=== PATIENT | male | born 1945 | race Caucasian/White ===

== ENCOUNTER → 2017-02-08 | Outpatient (REF) | payer MEDICARE, OTHER ==
[2017-02-08 13:38] LABS: IMMUNOGLOBULIN G 1040 MG/DL (681-1648); IMMUNOGLOBULIN M 188 MG/DL (40-230); TOTAL PROTEIN 6.7 GM/DL (6.4-8.2); URIC ACID 7.8 MG/DL (3.5-7.2)
[2017-02-09 12:09] LABS: ALBUMIN 3.77 GM/DL (3.29-5.55); ALBUMIN % 56.2 % (55.8-66.1); GAMMA GLOBULIN % 15.1 % (11.1-18.8)
== END ==
LOC: M LAB REF 12:22
PROVIDERS: ATTEND Internal Medicine
DX: M10.072 Idiopathic gout, left ankle and foot (principal); D47.2 Monoclonal gammopathy

== ENCOUNTER → 2017-08-15 | Outpatient (REF) | payer MEDICARE, OTHER ==
[2017-08-15 14:27] LABS: IMMUNOGLOBULIN G 1070 MG/DL (681-1648); IMMUNOGLOBULIN M 186 MG/DL (40-230); TOTAL PROTEIN 6.7 GM/DL (6.4-8.2)
[2017-08-17 11:14] LABS: ALBUMIN 3.69 GM/DL (3.29-5.55); GAMMA GLOBULIN % 15.4 % (11.1-18.8)
== END ==
LOC: M LAB REF 13:18
PROVIDERS: ATTEND Internal Medicine
DX: D47.2 Monoclonal gammopathy (principal)

== ENCOUNTER 2017-09-29 09:57 | Day surgery (SDC) | payer MEDICARE, OTHER ==
[2017-09-29] MEDS ORDERED: NEOSTIGMINE 10 MG/10 ML VIAL (J2710) ×2 (09:58)
[2017-09-29 10:39] LABS: INR 0.97
[2017-09-29] MEDS: LR 1,000 ML IV ×4 (10:48)
[2017-09-29] MEDS: METOPROLOL SUCC (TopROL XL) 100MG *XL* TAB PO ×4 (11:01)
[2017-09-29] MEDS ORDERED: PHENYLephrine HCL 500 MCG/5 ML (100MCG/ML) SYRINGE (J2370) As Ordered ×4 (13:24)
[2017-09-29] MEDS ORDERED: PROPOFOL 200 MG/20 ML VIAL As Ordered ×4 (13:24)
[2017-09-29] MEDS ORDERED: DESFLURANE 240 ML INHALANT As Ordered ×4 (13:24)
[2017-09-29] MEDS ORDERED: MIDAZOLAM INJ 2 MG/2 ML VIAL (J2250) As Ordered ×4 (13:24)
[2017-09-29] MEDS ORDERED: fentaNYL 100 MCG/2 ML INJECTION (J3010) As Ordered ×8 (13:24→14:03)
[2017-09-29] MEDS ORDERED: ROCURONIUM BROMIDE 50 MG/5 ML VIAL As Ordered ×4 (13:24)
[2017-09-29] MEDS ORDERED: LIDOCAINE 2% INJ 100 MG/5 ML SDV (FOR ANES.) As Ordered ×4 (13:24)
[2017-09-29] MEDS ORDERED: NEOSTIGMINE 10 MG/10 ML VIAL (J2710) As Ordered ×4 (13:34)
[2017-09-29] MEDS ORDERED: ONDANSETRON 4MG/2ML VIAL (J2405) As Ordered ×4 (13:34)
[2017-09-29] MEDS ORDERED: GLYCOPYRROLATE INJ 0.2 MG/ML 2 ML VIAL As Ordered ×4 (13:34)
[2017-09-29] MEDS ORDERED: KETOROLAC 60 MG/2 ML VIAL (J1885) As Ordered ×4 (13:34)
[2017-09-29] MEDS: LIDOCAINE W/EPINEPHRINE 1% 20ML VIAL As Ordered ×4 (14:15)
[2017-09-29] MEDS ORDERED: NORCO, ANEXSIA 5/325MG TABLET (HYDROcodone/ACETAMINOPHEN) PO ×4 (15:30)
[2017-09-29] MEDS ORDERED: ONDANSETRON 4MG/2ML VIAL (J2405) IV ×4 (15:30)
[2017-09-29] MEDS ORDERED: MORPHINE 10 MG/ML 1ML VIAL IV ×3 (15:30)
[2017-09-29] MEDS ORDERED: fentaNYL 100 MCG/2 ML INJECTION (J3010) IV ×4 (15:30)
[2017-09-29] MEDS ORDERED: LR 1,000 ML IV ×4 (15:30)
[2017-09-29] MEDS ORDERED: MORPHINE 10 MG/ML 1ML VIAL (J2270) IV (15:30)
[2017-09-29] MEDS ORDERED: PERCOCET 5MG/325MG TAB PO ×4 (15:30)
== END 2017-09-29 17:12 | disposition home or self-care (01) ==
LOC: M SDC 09:57
DX: K40.90 Unilateral inguinal hernia, without obstruction or gangrene, not specified as recurrent (principal); I11.9 Hypertensive heart disease without heart failure; I48.2 Chronic atrial fibrillation; I42.0 Dilated cardiomyopathy; M10.9 Gout, unspecified; K21.9 Gastro-esophageal reflux disease without esophagitis; E66.09 Other obesity due to excess calories; Z85.46 Personal history of malignant neoplasm of prostate; Z79.899 Other long term (current) drug therapy; Z79.01 Long term (current) use of anticoagulants
CPT/HCPCS: 49650; J0690

== ENCOUNTER 2018-01-13 18:34 | Inpatient (IN) | payer MEDICARE, OTHER ==
[2018-01-13 19:48] LABS: BASO # 0.1 10^3/uL (0.0-0.2); BASO % 0.2 % (0.0-1.0); HEMOGLOBIN 12.2 g/dl (13.5-17.5); IMMATURE GRANULOCYTE % 0.9 % (0-3.0); LYMPH # 1.2 10^3/uL (1.5-4.5); LYMPH % 4.8 % (24.0-44.0); MEAN CORPUSCULAR HEMOGLOBIN 32.4 pg (27.0-33.0); MEAN CORPUSCULAR HGB CONC 33.9 g/dl (32.0-36.5); MEAN CORPUSCULAR VOLUME 95.5 fl (80.0-96.0); MONO # 1.1 10^3/uL (0.0-0.8); MONO % 4.4 % (0.0-5.0); NEUTROPHILS % 89.7 % (36.0-66.0); PLATELET COUNT, AUTOMATED 243 10^3/uL (150-450); RED BLOOD COUNT 3.77 10^6/uL (4.30-6.10); RED CELL DISTRIBUTION WIDTH 13.7 % (11.5-14.5); WHITE BLOOD COUNT 25.6 10^3/uL (4.0-10.0)
[2018-01-13] MEDS: NS 1,000 ML IV ×2 (19:49→21:38)
[2018-01-13 19:59] LABS: INR 2.71; PROTHROMBIN TIME 29.9 SECONDS (12.4-14.5)
[2018-01-13 20:00] LABS: PARTIAL THROMBOPLASTIN TIME 41.3 SECONDS (26.8-37.9)
[2018-01-13 20:23] LABS: ANION GAP 6 MEQ/L (8-16); BLOOD UREA NITROGEN 27 MG/DL (7-18); CALCIUM LEVEL 8.2 MG/DL (8.8-10.2); CARBON DIOXIDE LEVEL 28 MEQ/L (21-32); CHLORIDE LEVEL 109 MEQ/L (98-107); CK-MB VALUE MASS 1.9 NG/ML (<3.6); CPK CREATINE PHOSPHOKINASE 147 U/L (39-308); GLOMERULAR FILTRATION RATE 48.7 (>42); GLUCOSE, FASTING 111 MG/DL (70-100); MB/CK RELATIVE INDEX 1.29 (< OR =4); POTASSIUM SERUM 4.1 MEQ/L (3.5-5.1); SODIUM LEVEL 143 MEQ/L (136-145); TROPONIN I < 0.02 NG/ML (< 0.10)
[2018-01-13 21:43] LABS: KETONE, URINE AUTO RFX NEGATIVE (NEGATIVE); LEUKOCYTE ESTERASE UR AUTO RFX NEGATIVE (NEGATIVE); MUCUS, URINE RFX SMALL (NEGATIVE); NITRITE, URINE AUTO RFX NEGATIVE (NEGATIVE); RBC, URINE AUTO RFX 76 /HPF (0-3); SQUAM EPITHELIAL CELL UR AURFX 0 /HPF (0-6); WBC, URINE AUTO RFX 2 /HPF (0-3)
[2018-01-13 21:56] LABS: LACTIC ACID SEPSIS PROTOCOL 0.9 MMOL/L (0.4-2.0)
[2018-01-13] MEDS: PIPERACILLIN/TAZOBACTAM SOD 3.375 GM in D5W MINI-BAG PLUS 50 ML IV (22:59)
[2018-01-14] MEDS ORDERED: NS 1,000 ML IV (03:00)
[2018-01-14] MEDS: NS 1,000 ML IV ×2 (04:05→17:18)
[2018-01-14] MEDS: AZITHROMYCIN INJ 500 MG, VIAL MATE ADAPTER 1 EACH in D5W 250 ML IV (04:06)
[2018-01-14] MEDS: cefTRIAXone SOD 1 GM in D5W MINI-BAG PLUS 50 ML IV (05:31)
[2018-01-14] MEDS ORDERED: SPIRONOLACTONE 12.5MG PER 1/2 TABLET PO (09:00)
[2018-01-14] MEDS ORDERED: hydroCHLOROthiazide 12.5 MG CAPSULE PO (09:00)
[2018-01-14] MEDS: OCUVITE 1 TAB PO (10:02)
[2018-01-14] MEDS: BISACODYL 5 MG TAB PO (10:02)
[2018-01-14] MEDS: VALSARTAN 80 MG TAB (DIOVAN) PO (10:38)
[2018-01-14] MEDS: METOPROLOL SUCC (TopROL XL) 100MG *XL* TAB PO (10:42)
[2018-01-14 11:21] LABS: INR 2.93; PROTHROMBIN TIME 31.9 SECONDS (12.4-14.5)
[2018-01-14 11:28] LABS: C REACTIVE PROTEIN QUANTITATIV 7.36 MG/DL (0.00-0.30)
[2018-01-14] MEDS: WARFARIN SOD 3 MG TAB PO (17:18)
[2018-01-15] MEDS: NS 1,000 ML IV (00:28)
[2018-01-15] MEDS: AZITHROMYCIN INJ 500 MG, VIAL MATE ADAPTER 1 EACH in D5W 250 ML IV (04:10)
[2018-01-15] MEDS: cefTRIAXone SOD 1 GM in D5W MINI-BAG PLUS 50 ML IV (06:16)
[2018-01-15 06:22] LABS: HEMATOCRIT 32.5 % (42.0-52.0); HEMOGLOBIN 10.6 g/dl (13.5-17.5); MEAN CORPUSCULAR HEMOGLOBIN 31.7 pg (27.0-33.0); MEAN CORPUSCULAR HGB CONC 32.6 g/dl (32.0-36.5); MEAN CORPUSCULAR VOLUME 97.3 fl (80.0-96.0); PLATELET COUNT, AUTOMATED 191 10^3/uL (150-450); RED BLOOD COUNT 3.34 10^6/uL (4.30-6.10); RED CELL DISTRIBUTION WIDTH 14.1 % (11.5-14.5); WHITE BLOOD COUNT 11.1 10^3/uL (4.0-10.0)
[2018-01-15 06:48] LABS: C REACTIVE PROTEIN QUANTITATIV 4.26 MG/DL (0.00-0.30)
[2018-01-15 06:49] LABS: INR 2.42; PROTHROMBIN TIME 27.3 SECONDS (12.4-14.5)
[2018-01-15 08:58] LABS: ANION GAP 6 MEQ/L (8-16); BLOOD UREA NITROGEN 20 MG/DL (7-18); CALCIUM LEVEL 7.9 MG/DL (8.8-10.2); CARBON DIOXIDE LEVEL 26 MEQ/L (21-32); CHLORIDE LEVEL 112 MEQ/L (98-107); CREATININE FOR GFR 1.05 MG/DL (0.70-1.30); GLOMERULAR FILTRATION RATE > 60.0 (>42); GLUCOSE, FASTING 99 MG/DL (70-100); POTASSIUM SERUM 4.1 MEQ/L (3.5-5.1); SODIUM LEVEL 144 MEQ/L (136-145)
[2018-01-15] MEDS: PREVNAR 13 VACCINE SYRINGE (CPT CODE:90670) IM (09:12)
[2018-01-15] MEDS: BISACODYL 5 MG TAB PO (09:13)
[2018-01-15] MEDS: VALSARTAN 80 MG TAB (DIOVAN) PO (09:13)
[2018-01-15] MEDS: OCUVITE 1 TAB PO (09:13)
[2018-01-15] MEDS: METOPROLOL SUCC (TopROL XL) 100MG *XL* TAB PO (09:13)
[2018-01-15] MEDS: guaiFENesin ER 600 MG TAB PO (09:14)
[2018-01-16] MEDS ORDERED: WARFARIN SOD 7.5 MG TAB PO (17:00)
== END 2018-01-15 16:02 | disposition home or self-care (01) | DRG 194 ==
LOC: M ED INP 01-14 02:48 → M MSPAV 01-14 03:52 → M ED 18:34
DX: J18.9 Pneumonia, unspecified organism (principal); N17.9 Acute kidney failure, unspecified; I48.91 Unspecified atrial fibrillation; Z79.01 Long term (current) use of anticoagulants; I10 Essential (primary) hypertension; Z79.899 Other long term (current) drug therapy

== ENCOUNTER → 2018-02-20 | Outpatient (REF) | payer MEDICARE, OTHER ==
[2018-02-20 12:53] LABS: TOTAL PROTEIN 7.6 GM/DL (6.4-8.2)
[2018-02-22 10:21] LABS: ALBUMIN 3.81 GM/DL (3.29-5.55); ALBUMIN % 50.1 % (55.8-66.1); ALPHA-1-GLOBULIN % 4.3 % (2.9-4.9); ALPHA-1-GLOBULINS 0.33 GM/DL (0.17-0.41); ALPHA-2-GLOBULINS 0.75 GM/DL (0.42-0.99); ALPHA-2-GLOBULINS % 9.9 % (7.1-11.8); BETA-1-GLOBULINS 0.49 GM/DL (0.28-0.60); BETA-1-GLOBULINS % 6.4 % (4.7-7.2); BETA-2-GLOBULINS 0.59 GM/DL (0.19-0.55); BETA-2-GLOBULINS % 7.8 % (3.2-6.5); GAMMA GLOBULIN % 21.5 % (11.1-18.8); GAMMA GLOBULINS 1.63 GM/DL (0.65-1.58)
== END ==
LOC: M LAB REF 12:18
DX: D47.2 Monoclonal gammopathy (principal)
CPT/HCPCS: 84165

== ENCOUNTER → 2018-03-23 | Outpatient (REF) | payer MEDICARE, OTHER | LOC: M LAB REF 12:51 | DX: B37.42 Candidal balanitis (principal) | CPT/HCPCS: 87102 ==

== ENCOUNTER → 2018-04-03 | Outpatient (REF) | payer MEDICARE, OTHER ==
[2018-04-03 10:19] LABS: PROTHROMBIN TIME 70.2 SECONDS (12.1-14.4)
[2018-04-03 10:24] LABS: INR 8.13
== END ==
LOC: M LAB REF 09:49
DX: I48.2 Chronic atrial fibrillation (principal); Z51.81 Encounter for therapeutic drug level monitoring
CPT/HCPCS: 85610

== ENCOUNTER → 2018-07-10 | Outpatient (CLI) | payer MEDICARE, OTHER ==
[2018-07-10 13:20] LABS: BASO # 0.1 10^3/uL (0.0-0.2); BASO % 0.3 % (0.0-1.0); EOS % 0.1 % (0.0-3.0); HEMOGLOBIN 13.2 g/dl (13.5-17.5); IMMATURE GRANULOCYTE % 0.8 % (0-3.0); MEAN CORPUSCULAR HEMOGLOBIN 32.2 pg (27.0-33.0); MEAN CORPUSCULAR HGB CONC 32.2 g/dl (32.0-36.5); MONO # 0.9 10^3/uL (0.0-0.8); MONO % 4.2 % (0.0-5.0); NEUTROPHILS # 18.6 10^3/uL (1.8-7.7); NEUTROPHILS % 89.6 % (36.0-66.0); PLATELET COUNT, AUTOMATED 336 10^3/uL (150-450); RED CELL DISTRIBUTION WIDTH 13.2 % (11.5-14.5); WHITE BLOOD COUNT 20.8 10^3/uL (4.0-10.0)
== END ==
LOC: M ADAMS 10:35
DX: J20.9 Acute bronchitis, unspecified (principal); I51.7 Cardiomegaly; R91.8 Other nonspecific abnormal finding of lung field

== ENCOUNTER 2018-07-11 23:51 | Inpatient (IN) | payer MEDICARE, OTHER ==
[2018-07-12 00:38] LABS: BASO % 0.2 % (0.0-1.0); EOS # 0.1 10^3/uL (0.0-0.50); EOS % 0.3 % (0.0-3.0); HEMATOCRIT 35.2 % (42.0-52.0); HEMOGLOBIN 11.8 g/dl (13.5-17.5); IMMATURE GRANULOCYTE % 1.8 % (0-3.0); LYMPH # 1.8 10^3/uL (1.5-4.5); LYMPH % 7.7 % (24.0-44.0); MEAN CORPUSCULAR HEMOGLOBIN 32.5 pg (27.0-33.0); MEAN CORPUSCULAR HGB CONC 33.5 g/dl (32.0-36.5); MONO # 1.2 10^3/uL (0.0-0.8); MONO % 5.3 % (0.0-5.0); NEUTROPHILS # 19.4 10^3/uL (1.8-7.7); NEUTROPHILS % 84.7 % (36.0-66.0); PLATELET COUNT, AUTOMATED 305 10^3/uL (150-450); RED BLOOD COUNT 3.63 10^6/uL (4.30-6.10); RED CELL DISTRIBUTION WIDTH 13.7 % (11.5-14.5); WHITE BLOOD COUNT 22.9 10^3/uL (4.0-10.0)
[2018-07-12 00:41] LABS: PROTHROMBIN TIME 16.4 SECONDS (12.1-14.4)
[2018-07-12] MEDS: METOPROLOL TART 50 MG TAB PO (00:50)
[2018-07-12] MEDS: METOPROLOL 5 MG/5 ML VIAL IV ×3 (00:50→01:06)
[2018-07-12 00:51] LABS: LACTIC ACID SEPSIS PROTOCOL 1.5 MMOL/L (0.4-2.0)
[2018-07-12 00:52] LABS: ANION GAP 10 MEQ/L (8-16); BLOOD UREA NITROGEN 28 MG/DL (7-18); CALCIUM LEVEL 8.5 MG/DL (8.8-10.2); CARBON DIOXIDE LEVEL 29 MEQ/L (21-32); CHLORIDE LEVEL 99 MEQ/L (98-107); CK-MB VALUE MASS < 1.0 NG/ML (<3.6); CPK CREATINE PHOSPHOKINASE 65 U/L (39-308); CREATININE FOR GFR 1.29 MG/DL (0.70-1.30); GLUCOSE, FASTING 130 MG/DL (70-100); MB/CK RELATIVE INDEX 1.54 (< OR =4); NT-PRO BNP 3528 PG/ML (<125); POTASSIUM SERUM 3.5 MEQ/L (3.5-5.1); SODIUM LEVEL 138 MEQ/L (136-145); TROPONIN I < 0.02 NG/ML (< 0.10)
[2018-07-12] MEDS: FUROSEMIDE 40 MG/4 ML VIAL (J1940) IV (03:36)
[2018-07-12] MEDS ORDERED: ONDANSETRON 4MG/2ML VIAL (J2405) IV (04:15)
[2018-07-12] MEDS: ACETAMINOPHEN TAB 650MG DOSE (2X325MG) PO ×2 (04:30→08:42)
[2018-07-12] MEDS: AZITHROMYCIN INJ 500 MG, VIAL MATE ADAPTER 1 EACH in D5W 250 ML IV (06:18)
[2018-07-12] MEDS: cefTRIAXone SOD 1 GM in D5W MINI-BAG PLUS 50 ML IV ×2 (08:00→17:51)
[2018-07-12 08:25] LABS: BASO % 0.2 % (0.0-1.0); EOS # 0.1 10^3/uL (0.0-0.50); EOS % 0.6 % (0.0-3.0); HEMATOCRIT 34.6 % (42.0-52.0); HEMOGLOBIN 11.3 g/dl (13.5-17.5); IMMATURE GRANULOCYTE % 0.8 % (0-3.0); LYMPH # 2.5 10^3/uL (1.5-4.5); LYMPH % 12.6 % (24.0-44.0); MEAN CORPUSCULAR HEMOGLOBIN 32.2 pg (27.0-33.0); MEAN CORPUSCULAR HGB CONC 32.7 g/dl (32.0-36.5); MEAN CORPUSCULAR VOLUME 98.6 fl (80.0-96.0); MONO # 1.2 10^3/uL (0.0-0.8); MONO % 6.3 % (0.0-5.0); NEUTROPHILS # 15.6 10^3/uL (1.8-7.7); NEUTROPHILS % 79.5 % (36.0-66.0); PLATELET COUNT, AUTOMATED 287 10^3/uL (150-450); RED BLOOD COUNT 3.51 10^6/uL (4.30-6.10); RED CELL DISTRIBUTION WIDTH 13.6 % (11.5-14.5); WHITE BLOOD COUNT 19.6 10^3/uL (4.0-10.0)
[2018-07-12] MEDS: PANTOPRAZOLE 40MG TAB (PROTONIX) PO (08:41)
[2018-07-12] MEDS: METOPROLOL SUCC (TopROL XL) 100MG *XL* TAB PO (08:41)
[2018-07-12] MEDS: APIXABAN 5 MG TAB (ELIQUIS) PO ×2 (08:41→21:04)
[2018-07-12 08:55] LABS: ANION GAP 7 MEQ/L (8-16); BLOOD UREA NITROGEN 22 MG/DL (7-18); CALCIUM LEVEL 8.5 MG/DL (8.8-10.2); CARBON DIOXIDE LEVEL 31 MEQ/L (21-32); CHLORIDE LEVEL 101 MEQ/L (98-107); CREATININE FOR GFR 1.11 MG/DL (0.70-1.30); GLOMERULAR FILTRATION RATE > 60.0 (>42); GLUCOSE, FASTING 128 MG/DL (70-100); POTASSIUM SERUM 3.2 MEQ/L (3.5-5.1); SODIUM LEVEL 139 MEQ/L (136-145)
[2018-07-12] MEDS ORDERED: ALBUTEROL SULFATE 2.5 MG/0.5 ML INH NEB SOLN NEB (13:45)
[2018-07-12] MEDS ORDERED: RAMELTEON 8 MG TAB (ROZEREM) PO (22:15)
[2018-07-13] MEDS: cefTRIAXone SOD 1 GM in D5W MINI-BAG PLUS 50 ML IV ×2 (06:20→17:32)
[2018-07-13] MEDS: APIXABAN 5 MG TAB (ELIQUIS) PO ×2 (07:57→20:52)
[2018-07-13] MEDS: OMEPRAZOLE 20 MG CAP PO (07:57)
[2018-07-13] MEDS: AZITHROMYCIN 250 MG TAB PO (07:57)
[2018-07-13] MEDS: PANTOPRAZOLE 40MG TAB (PROTONIX) PO (07:58)
[2018-07-13] MEDS: METOPROLOL SUCC (TopROL XL) 100MG *XL* TAB PO (07:58)
[2018-07-14] MEDS: cefTRIAXone SOD 1 GM in D5W MINI-BAG PLUS 50 ML IV (05:52)
[2018-07-14] MEDS: AZITHROMYCIN 250 MG TAB PO (08:41)
[2018-07-14] MEDS: PANTOPRAZOLE 40MG TAB (PROTONIX) PO (08:41)
[2018-07-14] MEDS: METOPROLOL SUCC (TopROL XL) 100MG *XL* TAB PO (08:41)
[2018-07-14] MEDS: APIXABAN 5 MG TAB (ELIQUIS) PO (08:41)
[2018-07-14 09:02] LABS: BASO % 0.2 % (0.0-1.0); EOS # 0.2 10^3/uL (0.0-0.50); EOS % 1.3 % (0.0-3.0); HEMATOCRIT 34.1 % (42.0-52.0); HEMOGLOBIN 11.3 g/dl (13.5-17.5); IMMATURE GRANULOCYTE % 0.5 % (0-3.0); LYMPH # 1.8 10^3/uL (1.5-4.5); MEAN CORPUSCULAR HEMOGLOBIN 32.7 pg (27.0-33.0); MEAN CORPUSCULAR HGB CONC 33.1 g/dl (32.0-36.5); MEAN CORPUSCULAR VOLUME 98.6 fl (80.0-96.0); MONO # 0.7 10^3/uL (0.0-0.8); MONO % 5.8 % (0.0-5.0); NEUTROPHILS % 78.2 % (36.0-66.0); PLATELET COUNT, AUTOMATED 347 10^3/uL (150-450); RED BLOOD COUNT 3.46 10^6/uL (4.30-6.10); RED CELL DISTRIBUTION WIDTH 13.6 % (11.5-14.5); WHITE BLOOD COUNT 12.8 10^3/uL (4.0-10.0)
[2018-07-14 09:29] LABS: BLOOD UREA NITROGEN 17 MG/DL (7-18); CARBON DIOXIDE LEVEL 33 MEQ/L (21-32); CHLORIDE LEVEL 103 MEQ/L (98-107); CREATININE FOR GFR 1.01 MG/DL (0.70-1.30); GLOMERULAR FILTRATION RATE > 60.0 (>42); GLUCOSE, FASTING 95 MG/DL (70-100); POTASSIUM SERUM 3.9 MEQ/L (3.5-5.1); SODIUM LEVEL 142 MEQ/L (136-145)
[2018-07-14 09:30] LABS: ANION GAP 6 MEQ/L (8-16); CALCIUM LEVEL 8.1 MG/DL (8.8-10.2)
[2018-07-14 14:10] LABS: LEGIONELLA ANTIGEN URINE Negative (Negative)
== END 2018-07-14 10:52 | disposition home or self-care (01) | DRG 194 ==
LOC: M ED 23:51 → M ED INP 07-12 04:14 → M MSPAV 07-12 13:51
DX: J15.9 Unspecified bacterial pneumonia (principal); J84.9 Interstitial pulmonary disease, unspecified; I51.7 Cardiomegaly; B97.10 Unspecified enterovirus as the cause of diseases classified elsewhere; J06.9 Acute upper respiratory infection, unspecified; I48.91 Unspecified atrial fibrillation; I11.0 Hypertensive heart disease with heart failure; Z98.49 Cataract extraction status, unspecified eye; Z87.891 Personal history of nicotine dependence; Z79.01 Long term (current) use of anticoagulants; Z79.899 Other long term (current) drug therapy

== ENCOUNTER 2018-07-14 21:14 | Inpatient (IN) | payer MEDICARE, OTHER ==
[2018-07-14 21:52] LABS: BASO # 0.1 10^3/uL (0.0-0.2); BASO % 0.2 % (0.0-1.0); EOS # 0.1 10^3/uL (0.0-0.50); EOS % 0.2 % (0.0-3.0); HEMOGLOBIN 11.6 g/dl (13.5-17.5); IMMATURE GRANULOCYTE % 0.5 % (0-3.0); LYMPH % 4.8 % (24.0-44.0); MEAN CORPUSCULAR HEMOGLOBIN 32.3 pg (27.0-33.0); MEAN CORPUSCULAR HGB CONC 32.2 g/dl (32.0-36.5); MEAN CORPUSCULAR VOLUME 100.3 fl (80.0-96.0); MONO # 0.9 10^3/uL (0.0-0.8); MONO % 4.3 % (0.0-5.0); NEUTROPHILS # 18.2 10^3/uL (1.8-7.7); PLATELET COUNT, AUTOMATED 326 10^3/uL (150-450); RED BLOOD COUNT 3.59 10^6/uL (4.30-6.10); RED CELL DISTRIBUTION WIDTH 13.6 % (11.5-14.5); WHITE BLOOD COUNT 20.3 10^3/uL (4.0-10.0)
[2018-07-14] MEDS: IPRATROPIUM 0.5MG/ALBUTEROL 2.5MG INH SOL UD 3ML (DUONEB)(J7620) NEB (21:58)
[2018-07-14 21:59] LABS: VENOUS BASE EXCESS 5.1 (-2.0-2.0); VENOUS HCO3 30.4 MEQ/L (23.0-27.0); VENOUS O2 SATURATION 74.5 % (60.0-80.0); VENOUS PARTIAL PRESSURE CO2 47.5 mmHg (38.0-50.0); VENOUS PH 7.424 UNITS (7.330-7.430); VENOUS STANDARD HCO3 28.5 MEQ/L; VENOUS TOTAL CO2 31.9 MEQ/L (24.0-28.0)
[2018-07-14] MEDS: ASPIRIN 81 MG CHEW TABLET PO (22:10)
[2018-07-14] MEDS: ACETAMINOPHEN 325 MG TAB PO (22:10)
[2018-07-14] MEDS: NS 1,000 ML IV (22:11)
[2018-07-14 22:21] LABS: LACTIC ACID SEPSIS PROTOCOL 2.4 MMOL/L (0.4-2.0)
[2018-07-14 22:43] LABS: INR 1.33; PROTHROMBIN TIME 16.7 SECONDS (12.1-14.4)
[2018-07-14 22:51] LABS: INFLUENZA A AMPLIFICATION NEGATIVE (NEGATIVE); INFLUENZA B AMPLIFICATION NEGATIVE (NEGATIVE)
[2018-07-14 22:57] LABS: ALBUMIN 2.6 GM/DL (3.2-5.2); ALBUMIN/GLOBULIN RATIO 0.55 (1.00-1.93); ALKALINE PHOSPHATASE 98 U/L (45-117); ALT/SGPT 34 U/L (12-78); ANION GAP 8 MEQ/L (8-16); AST/SGOT 25 U/L (7-37); BILIRUBIN,DIRECT 0.2 MG/DL (0.0-0.2); BILIRUBIN,TOTAL 0.5 MG/DL (0.2-1.0); BLOOD UREA NITROGEN 23 MG/DL (7-18); CALCIUM LEVEL 8.4 MG/DL (8.8-10.2); CARBON DIOXIDE LEVEL 29 MEQ/L (21-32); CHLORIDE LEVEL 104 MEQ/L (98-107); CREATININE FOR GFR 1.19 MG/DL (0.70-1.30); GLOMERULAR FILTRATION RATE > 60.0 (>42); GLUCOSE, FASTING 127 MG/DL (70-100); NT-PRO BNP 2686 PG/ML (<125); POTASSIUM SERUM 3.7 MEQ/L (3.5-5.1); SODIUM LEVEL 141 MEQ/L (136-145); TOTAL PROTEIN 7.3 GM/DL (6.4-8.2)
[2018-07-14] MEDS: FUROSEMIDE 40 MG/4 ML VIAL (J1940) IV (23:33)
[2018-07-15] MEDS ORDERED: IPRATROPIUM 0.5MG/ALBUTEROL 2.5MG INH SOL UD 3ML (DUONEB)(J7620) NEB (00:45)
[2018-07-15] MEDS: diltiaZEM 125 MG in NS 100 ML IV (01:39)
[2018-07-15] MEDS: cefTRIAXone SOD 1 GM in D5W MINI-BAG PLUS 50 ML IV (02:15)
[2018-07-15 04:47] LABS: HEMATOCRIT 31.8 % (42.0-52.0); HEMOGLOBIN 10.4 g/dl (13.5-17.5); MEAN CORPUSCULAR HEMOGLOBIN 32.8 pg (27.0-33.0); MEAN CORPUSCULAR HGB CONC 32.7 g/dl (32.0-36.5); MEAN CORPUSCULAR VOLUME 100.3 fl (80.0-96.0); PLATELET COUNT, AUTOMATED 321 10^3/uL (150-450); RED BLOOD COUNT 3.17 10^6/uL (4.30-6.10); RED CELL DISTRIBUTION WIDTH 13.8 % (11.5-14.5)
[2018-07-15 05:10] LABS: ALBUMIN 2.3 GM/DL (3.2-5.2); ALBUMIN/GLOBULIN RATIO 0.58 (1.00-1.93); ALKALINE PHOSPHATASE 80 U/L (45-117); ALT/SGPT 30 U/L (12-78); ANION GAP 6 MEQ/L (8-16); AST/SGOT 22 U/L (7-37); BILIRUBIN,TOTAL 0.7 MG/DL (0.2-1.0); BLOOD UREA NITROGEN 22 MG/DL (7-18); CALCIUM LEVEL 7.8 MG/DL (8.8-10.2); CARBON DIOXIDE LEVEL 31 MEQ/L (21-32); CHLORIDE LEVEL 106 MEQ/L (98-107); CREATININE FOR GFR 1.08 MG/DL (0.70-1.30); GLOMERULAR FILTRATION RATE > 60.0 (>42); GLUCOSE, FASTING 133 MG/DL (70-100); MAGNESIUM LEVEL 2.2 MG/DL (1.8-2.4); POTASSIUM SERUM 3.8 MEQ/L (3.5-5.1); SODIUM LEVEL 143 MEQ/L (136-145); TOTAL PROTEIN 6.3 GM/DL (6.4-8.2)
[2018-07-15] MEDS: DIGOXIN 0.25 MG TAB PO ×2 (07:39→11:11)
[2018-07-15] MEDS: TORSEMIDE 10 MG TABLET PO (08:24)
[2018-07-15] MEDS: APIXABAN 5 MG TAB (ELIQUIS) PO ×2 (08:26→20:04)
[2018-07-15] MEDS: AZITHROMYCIN 250 MG TAB PO (08:27)
[2018-07-15] MEDS: METOPROLOL SUCC (TopROL XL) 100MG *XL* TAB PO (08:27)
[2018-07-15] MEDS: ACETAMINOPHEN 500 MG TAB PO (18:37)
[2018-07-16] MEDS: cefTRIAXone SOD 1 GM in D5W MINI-BAG PLUS 50 ML IV (01:31)
[2018-07-16] MEDS: APIXABAN 5 MG TAB (ELIQUIS) PO ×2 (08:30→21:27)
[2018-07-16] MEDS: AZITHROMYCIN 250 MG TAB PO (08:30)
[2018-07-16] MEDS: TORSEMIDE 10 MG TABLET PO (08:30)
[2018-07-16] MEDS: METOPROLOL SUCC (TopROL XL) 100MG *XL* TAB PO (08:30)
[2018-07-16] MEDS: DIGOXIN 0.25 MG TAB PO (11:15)
[2018-07-16] MEDS: ACETAMINOPHEN 500 MG TAB PO (21:27)
[2018-07-17] MEDS: cefTRIAXone SOD 1 GM in D5W MINI-BAG PLUS 50 ML IV (02:13)
[2018-07-17 07:15] LABS: DIGOXIN LEVEL 0.8 NG/ML (0.5-2.0)
[2018-07-17 07:45] LABS: ANION GAP 4 MEQ/L (8-16); BLOOD UREA NITROGEN 19 MG/DL (7-18); CALCIUM LEVEL 8.3 MG/DL (8.8-10.2); CARBON DIOXIDE LEVEL 32 MEQ/L (21-32); CHLORIDE LEVEL 105 MEQ/L (98-107); CREATININE FOR GFR 1.05 MG/DL (0.70-1.30); GLOMERULAR FILTRATION RATE > 60.0 (>42); GLUCOSE, FASTING 92 MG/DL (70-100); POTASSIUM SERUM 3.9 MEQ/L (3.5-5.1); SODIUM LEVEL 141 MEQ/L (136-145)
[2018-07-17 07:46] LABS: BASO % 0.3 % (0.0-1.0); EOS # 0.3 10^3/uL (0.0-0.50); EOS % 2.2 % (0.0-3.0); HEMATOCRIT 33.9 % (42.0-52.0); HEMOGLOBIN 10.9 g/dl (13.5-17.5); IMMATURE GRANULOCYTE % 0.7 % (0-3.0); LYMPH # 2.2 10^3/uL (1.5-4.5); LYMPH % 18.7 % (24.0-44.0); MEAN CORPUSCULAR HEMOGLOBIN 32.7 pg (27.0-33.0); MEAN CORPUSCULAR HGB CONC 32.2 g/dl (32.0-36.5); MEAN CORPUSCULAR VOLUME 101.8 fl (80.0-96.0); MONO # 0.9 10^3/uL (0.0-0.8); MONO % 7.6 % (0.0-5.0); NEUTROPHILS # 8.2 10^3/uL (1.8-7.7); NEUTROPHILS % 70.5 % (36.0-66.0); PLATELET COUNT, AUTOMATED 325 10^3/uL (150-450); RED BLOOD COUNT 3.33 10^6/uL (4.30-6.10); RED CELL DISTRIBUTION WIDTH 13.8 % (11.5-14.5); WHITE BLOOD COUNT 11.6 10^3/uL (4.0-10.0)
[2018-07-17] MEDS: METOPROLOL SUCC (TopROL XL) 100MG *XL* TAB PO (08:01)
[2018-07-17] MEDS: AZITHROMYCIN 250 MG TAB PO (08:01)
[2018-07-17] MEDS: DIGOXIN 0.25 MG TAB PO ×3 (08:02→20:11)
[2018-07-17] MEDS: APIXABAN 5 MG TAB (ELIQUIS) PO ×2 (08:02→20:11)
[2018-07-17] MEDS: TORSEMIDE 10 MG TABLET PO (08:02)
[2018-07-17] MEDS: ASPIRIN 81 MG ENTERIC TAB PO (15:32)
[2018-07-17 17:25] LABS: MAGNESIUM LEVEL 2.2 MG/DL (1.8-2.4)
[2018-07-17] MEDS: COLCHICINE 0.6 MG TAB PO (20:11)
[2018-07-18] MEDS: cefTRIAXone SOD 1 GM in D5W MINI-BAG PLUS 50 ML IV (02:05)
[2018-07-18 06:51] LABS: BASO # 0.1 10^3/uL (0.0-0.2); BASO % 0.5 % (0.0-1.0); EOS # 0.2 10^3/uL (0.0-0.50); HEMATOCRIT 33.7 % (42.0-52.0); HEMOGLOBIN 10.9 g/dl (13.5-17.5); IMMATURE GRANULOCYTE % 0.5 % (0-3.0); LYMPH % 19.5 % (24.0-44.0); MEAN CORPUSCULAR HEMOGLOBIN 32.5 pg (27.0-33.0); MEAN CORPUSCULAR HGB CONC 32.3 g/dl (32.0-36.5); MEAN CORPUSCULAR VOLUME 100.6 fl (80.0-96.0); MONO # 0.9 10^3/uL (0.0-0.8); MONO % 8.3 % (0.0-5.0); NEUTROPHILS % 69.2 % (36.0-66.0); PLATELET COUNT, AUTOMATED 340 10^3/uL (150-450); RED BLOOD COUNT 3.35 10^6/uL (4.30-6.10); RED CELL DISTRIBUTION WIDTH 13.5 % (11.5-14.5); WHITE BLOOD COUNT 10.2 10^3/uL (4.0-10.0)
[2018-07-18 07:07] LABS: ANION GAP 4 MEQ/L (8-16); BLOOD UREA NITROGEN 16 MG/DL (7-18); CALCIUM LEVEL 8.2 MG/DL (8.8-10.2); CARBON DIOXIDE LEVEL 33 MEQ/L (21-32); CHLORIDE LEVEL 105 MEQ/L (98-107); CREATININE FOR GFR 1.02 MG/DL (0.70-1.30); GLOMERULAR FILTRATION RATE > 60.0 (>42); GLUCOSE, FASTING 96 MG/DL (70-100); SODIUM LEVEL 142 MEQ/L (136-145)
[2018-07-18] MEDS: AZITHROMYCIN 250 MG TAB PO (08:41)
[2018-07-18] MEDS: ASPIRIN 81 MG ENTERIC TAB PO (08:41)
[2018-07-18] MEDS: TORSEMIDE 10 MG TABLET PO (08:41)
[2018-07-18] MEDS: DIGOXIN 0.25 MG TAB PO (08:41)
[2018-07-18] MEDS: METOPROLOL SUCC (TopROL XL) 100MG *XL* TAB PO (08:41)
[2018-07-18] MEDS: APIXABAN 5 MG TAB (ELIQUIS) PO ×2 (08:41→20:37)
[2018-07-19 06:13] LABS: BASO % 0.4 % (0.0-1.0); EOS # 0.2 10^3/uL (0.0-0.50); EOS % 1.7 % (0.0-3.0); HEMATOCRIT 35.2 % (42.0-52.0); HEMOGLOBIN 11.6 g/dl (13.5-17.5); IMMATURE GRANULOCYTE % 0.4 % (0-3.0); LYMPH # 2.2 10^3/uL (1.5-4.5); LYMPH % 20.1 % (24.0-44.0); MEAN CORPUSCULAR HEMOGLOBIN 32.5 pg (27.0-33.0); MEAN CORPUSCULAR VOLUME 98.6 fl (80.0-96.0); MONO # 0.9 10^3/uL (0.0-0.8); MONO % 8.5 % (0.0-5.0); NEUTROPHILS # 7.6 10^3/uL (1.8-7.7); NEUTROPHILS % 68.9 % (36.0-66.0); PLATELET COUNT, AUTOMATED 354 10^3/uL (150-450); RED BLOOD COUNT 3.57 10^6/uL (4.30-6.10); RED CELL DISTRIBUTION WIDTH 13.5 % (11.5-14.5)
[2018-07-19 06:41] LABS: ANION GAP 5 MEQ/L (8-16); BLOOD UREA NITROGEN 15 MG/DL (7-18); CALCIUM LEVEL 8.4 MG/DL (8.8-10.2); CARBON DIOXIDE LEVEL 30 MEQ/L (21-32); CHLORIDE LEVEL 105 MEQ/L (98-107); GLOMERULAR FILTRATION RATE > 60.0 (>42); GLUCOSE, FASTING 93 MG/DL (70-100); SODIUM LEVEL 140 MEQ/L (136-145)
[2018-07-19] MEDS: ASPIRIN 81 MG ENTERIC TAB PO (09:28)
[2018-07-19] MEDS: METOPROLOL SUCC (TopROL XL) 100MG *XL* TAB PO (09:28)
[2018-07-19] MEDS: TORSEMIDE 10 MG TABLET PO (09:28)
[2018-07-19] MEDS: DIGOXIN 0.25 MG TAB PO (09:28)
[2018-07-19] MEDS: APIXABAN 5 MG TAB (ELIQUIS) PO (09:28)
== END 2018-07-19 14:12 | disposition home or self-care (01) | DRG 308 ==
LOC: M ED INP 07-15 00:36 → M ICU 07-15 02:04 → M ED 21:14 → M MSPAV 07-15 16:43
DX: I48.2 Chronic atrial fibrillation (principal); J12.9 Viral pneumonia, unspecified; J84.9 Interstitial pulmonary disease, unspecified; I11.0 Hypertensive heart disease with heart failure; I25.10 Atherosclerotic heart disease of native coronary artery without angina pectoris; B97.89 Other viral agents as the cause of diseases classified elsewhere; Z79.899 Other long term (current) drug therapy; Z79.01 Long term (current) use of anticoagulants; Z87.891 Personal history of nicotine dependence; D47.2 Monoclonal gammopathy; E66.9 Obesity, unspecified; I25.2 Old myocardial infarction; I50.9 Heart failure, unspecified; I27.81 Cor pulmonale (chronic)

== ENCOUNTER → 2018-08-13 | Outpatient (REF) | payer MEDICARE, OTHER ==
[2018-08-13 18:27] LABS: BASO # 0.1 10^3/uL (0.0-0.2); BASO % 0.5 % (0.0-1.0); EOS # 0.2 10^3/uL (0.0-0.50); EOS % 1.5 % (0.0-3.0); HEMATOCRIT 42.4 % (42.0-52.0); HEMOGLOBIN 13.7 g/dl (13.5-17.5); IMMATURE GRANULOCYTE % 0.2 % (0-3.0); LYMPH % 18.1 % (24.0-44.0); MEAN CORPUSCULAR HGB CONC 32.3 g/dl (32.0-36.5); MEAN CORPUSCULAR VOLUME 99.1 fl (80.0-96.0); MONO # 0.5 10^3/uL (0.0-0.8); MONO % 4.8 % (0.0-5.0); NEUTROPHILS # 8.1 10^3/uL (1.8-7.7); NEUTROPHILS % 74.9 % (36.0-66.0); PLATELET COUNT, AUTOMATED 249 10^3/uL (150-450); RED BLOOD COUNT 4.28 10^6/uL (4.30-6.10); RED CELL DISTRIBUTION WIDTH 14.5 % (11.5-14.5); WHITE BLOOD COUNT 10.8 10^3/uL (4.0-10.0)
[2018-08-13 18:35] LABS: ALBUMIN 3.2 GM/DL (3.2-5.2); ALBUMIN/GLOBULIN RATIO 0.73 (1.00-1.93); ALKALINE PHOSPHATASE 72 U/L (45-117); ALT/SGPT 31 U/L (12-78); AST/SGOT 22 U/L (7-37); BILIRUBIN,DIRECT 0.1 MG/DL (0.0-0.2); BILIRUBIN,TOTAL 0.4 MG/DL (0.2-1.0); CALCIUM LEVEL 8.5 MG/DL (8.8-10.2); GLOMERULAR FILTRATION RATE 48.7 (>42); TOTAL PROTEIN 7.6 GM/DL (6.4-8.2)
[2018-08-13 18:43] LABS: TOTAL 25(OH) VITAMIN D 36.5 NG/ML (30.0-100.0)
[2018-08-13 20:17] LABS: ERYTHROCYTE SEDIMENTATION RATE 46 mm/hr (0-20)
[2018-08-17 00:06] LABS: ANCA-ATYPICAL <1:20 titer (Neg:<1:20); ANGIOTENSIN 1 CONVERTING ENZYM 34 U/L (14-82); ANTI DOUBLE STRAND-DNA AB <1 IU/mL (0-9); ANTINUCLEAR ANTIBODIES DIRECT Negative (Negative); CYTOPLASMIC NEUTROP AB ANCA-C <1:20 titer (Neg:<1:20); PERINUCLEAR AB ANCA-P <1:20 titer (Neg:<1:20); RNP ANTIBODIES <0.2 AI (0.0-0.9); SJOGREN'S ANTI SS-A <0.2 AI (0.0-0.9); SJOGREN'S ANTI SS-B <0.2 AI (0.0-0.9); SMITH ANTIBODIES <0.2 AI (0.0-0.9); VITAMIN D 1,25 DIHYDROXY 21.8 pg/mL (19.9-79.3)
== END ==
LOC: M LAB REF 17:20
DX: R91.8 Other nonspecific abnormal finding of lung field (principal)
CPT/HCPCS: 82310

== ENCOUNTER → 2018-08-28 | Outpatient (CLI) | payer MEDICARE, OTHER | LOC: M RAD 09:46 | DX: R91.1 Solitary pulmonary nodule (principal); J84.10 Pulmonary fibrosis, unspecified; J43.9 Emphysema, unspecified; N20.0 Calculus of kidney | CPT/HCPCS: 71250 ==

== ENCOUNTER → 2018-10-02 | Outpatient (CLI) | payer MEDICARE, OTHER ==
[~2018-10-02] MED LIST: ANUS2.5C2 PR; AZEL1SPR3; AZIT-12 PO; CEFD1CAP8; CEFD1CAP8 PO; COLC1TAB13; COLC1TAB13 PO; COZA50TA; DIGO0.25 PO; DOCU100C16 PO; DULC5TAB PO; ELIQ5TAB PO; FLON1SPR; LEVA1TAB2 PO; LOSA25TA14 PO; LOSA50TA5 PO; MUCI600T37 PO; OCCUVITE PO; OCUVTAB PO; RANI15TA PO; SPIR-10 PO; TARTCAP PO; TOPR200T PO; TORS10TA3; TORS10TA3 PO; VALS80TA PO; WARF-21 PO; WARF-60 PO; WARF05TA GT
--- NOTE | 2018-10-05 10:36 | SLEEPCENT ---
DATE OF PROCEDURE: 10/02/2018 ORDERING PROVIDER: Dr. Zane Hess, copy to Dr. Amin INTERPRETATION: Nocturnal polysomnography was performed for evaluation of sleep physiology in this patient with a history of snoring and nonrestorative sleep who has comorbidities of pulmonary hypertension and atrial fibrillation. 8 hours and 20 minutes of data were reviewed. There were 326 minutes of sleep identified. Sleep latency was mildly prolonged at 44 minutes. Rapid eye movement (REM) latency was more so prolonged at 196 minutes. Sleep architecture showed fragmentation in poor progression in one REM cycle. Overall sleep efficiency was reduced, however, 66%. The patient's electrocardiogram showed atrial fibrillation with a ventricular response rate of 76 beats per minute on average. Rate ranged between 56 and 90 beats per minute. EEG showed fairly normal waveforms for awake and sleep stages. There were no focal events identified. There were 44 respiratory events identified of 10 seconds in duration or greater for an apnea-hypopnea index of 8.1. The events were obstructive not exclusive to sleep stage more frequent in the supine posture. Arousals from respiratory events occurred 11.8 times per hour when arousals from snoring were included. There was some activity noted in the limb leads but limb movement arousals were few at 0.6 and oxygen desaturations surrounding respiratory events were seen in the upper 70s. IMPRESSION: Obstructive sleep apnea syndrome (G47.33). Apnea-hypopnea index 8.1. RECOMMENDATIONS: The patient should be encouraged to return to the sleep disorder center for pressure therapy. In the interim alcohol and sedative avoidance should be practiced and caution exercised during the operation of motor vehicles.
== END ==
LOC: M SLEEP 19:41
PROVIDERS: ATTEND Internal Medicine Pulmonary Disease
DX: G47.33 Obstructive sleep apnea (adult) (pediatric) (principal)

== ENCOUNTER → 2018-12-03 | Outpatient (CLI) | payer MEDICARE, OTHER ==
--- NOTE | 2018-12-04 16:32 | SLEEPCENT ---
DATE OF PROCEDURE: 12/03/2018 ORDERED BY: Dr. Hess Nocturnal polysomnography was performed for the titration of pressure therapy in this patient with obstructive sleep apnea syndrome. Apnea-hypopnea index 8.1. For testing a [employer]Med Quattro full face mask of medium size was used, 4 cm of water pressure were applied to the circuit and the lights were extinguished. 7 hours and 33 minutes of data were reviewed. There were 380 minutes of sleep identified. Sleep latency was short at 17.5 minutes. Rapid eye movement (REM) latency was short at 58.5 minutes. Sleep architecture was good with six REM cycles. Overall sleep efficiency was 84.8%. The electrocardiogram showed atrial fibrillation with an average heart rate of 74 beats minute, rate ranged 50-90. EEG showed fairly normal waveforms for awake and sleep. Respiratory events were fully palliated with continuous positive airway pressure (CPAP) at a pressure of +12 with minimal limb activity, most of which occurred early in the night. Arousals 4.9 times per hour. IMPRESSION: Obstructive sleep apnea syndrome (G47.33). RECOMMENDATIONS: Nightly use of pressure therapy 12 cm of water.
== END ==
LOC: M SLEEP 19:48
PROVIDERS: ATTEND Internal Medicine Pulmonary Disease
DX: G47.33 Obstructive sleep apnea (adult) (pediatric) (principal)

== ENCOUNTER → 2019-03-20 | Outpatient (REF) | payer MEDICARE, OTHER ==
[2019-03-20 12:49] LABS: TOTAL PROTEIN 7.2 GM/DL (6.4-8.2)
[2019-03-27 11:26] LABS: ALBUMIN 3.82 GM/DL (3.29-5.55); ALBUMIN % 53.1 % (55.8-66.1); ALPHA-1-GLOBULIN % 4.4 % (2.9-4.9); ALPHA-1-GLOBULINS 0.32 GM/DL (0.17-0.41); ALPHA-2-GLOBULINS 0.68 GM/DL (0.42-0.99); ALPHA-2-GLOBULINS % 9.5 % (7.1-11.8); BETA-1-GLOBULINS 0.46 GM/DL (0.28-0.60); BETA-1-GLOBULINS % 6.4 % (4.7-7.2); GAMMA GLOBULIN % 19.6 % (11.1-18.8); GAMMA GLOBULINS 1.41 GM/DL (0.65-1.58)
== END ==
LOC: M LAB REF 11:10
PROVIDERS: ATTEND Internal Medicine
DX: D47.2 Monoclonal gammopathy (principal)

== ENCOUNTER → 2019-09-27 | Outpatient (REF) | payer MEDICARE, OTHER ==
[~2019-09-27] MED LIST changes: -DIGO0.25 PO; +DIGO0.253 PO
[2019-09-27 14:07] LABS: IMMUNOGLOBULIN G 1320 MG/DL (681-1648); TOTAL PROTEIN 7.1 GM/DL (6.4-8.2); URIC ACID 8.5 MG/DL (3.5-7.2)
[2019-10-01 12:54] LABS: ALBUMIN 3.83 GM/DL (3.29-5.55); ALPHA-1-GLOBULIN % 4.5 % (2.9-4.9); ALPHA-1-GLOBULINS 0.32 GM/DL (0.17-0.41); ALPHA-2-GLOBULINS 0.77 GM/DL (0.42-0.99); ALPHA-2-GLOBULINS % 10.8 % (7.1-11.8); BETA-1-GLOBULINS 0.45 GM/DL (0.28-0.60); BETA-1-GLOBULINS % 6.4 % (4.7-7.2); BETA-2-GLOBULINS 0.52 GM/DL (0.19-0.55); BETA-2-GLOBULINS % 7.3 % (3.2-6.5); GAMMA GLOBULINS 1.21 GM/DL (0.65-1.58)
== END ==
LOC: M LAB REF 11:51
PROVIDERS: ATTEND Internal Medicine
DX: D47.2 Monoclonal gammopathy (principal)

== ENCOUNTER → 2021-06-15 | Outpatient (REF) | payer MEDICARE, OTHER ==
[~2021-06-15] MED LIST changes: +COLC0.6T47; +COLC0.6T47 PO; -COLC1TAB13; -COLC1TAB13 PO
[2021-06-15 14:25] LABS: IMMUNOGLOBULIN G 1330 MG/DL (681-1648)
[2021-06-16 13:33] LABS: ALBUMIN % 54.2 % (55.8-66.1)
[2021-06-16 13:34] LABS: ALBUMIN 3.79 GM/DL (3.29-5.55); ALPHA-1-GLOBULIN % 4.3 % (2.9-4.9); BETA-1-GLOBULINS 0.47 GM/DL (0.28-0.60); BETA-1-GLOBULINS % 6.7 % (4.7-7.2); BETA-2-GLOBULINS 0.52 GM/DL (0.19-0.55); BETA-2-GLOBULINS % 7.4 % (3.2-6.5); GAMMA GLOBULIN % 17.4 % (11.1-18.8); GAMMA GLOBULINS 1.22 GM/DL (0.65-1.58)
== END ==
LOC: M LAB REF 13:20
PROVIDERS: ATTEND Internal Medicine
DX: D47.2 Monoclonal gammopathy (principal)

== ENCOUNTER → 2021-12-02 | Outpatient (REF) | payer MEDICARE, OTHER ==
[~2021-12-02] MED LIST changes: -CEFD1CAP8; -CEFD1CAP8 PO; +CEFD300C41; +CEFD300C41 PO; +LOSA25TA13 PO; -LOSA25TA14 PO
== END ==
LOC: M LAB REF 12:15
PROVIDERS: ATTEND Internal Medicine
DX: N18.31 Chronic kidney disease, stage 3a (principal)

== ENCOUNTER 2021-12-20 19:16 | Emergency (ER) | payer MEDICARE, OTHER ==
[~2021-12-20] VITALS: Ht 193 cm; Wt 113.6 kg
[2021-12-20] MEDS ORDERED: ASPIRIN 81 MG CHEW TABLET PO ONE (20:20)
[2021-12-20] MEDS ORDERED: ISOVUE-370 76% 100ML VIAL As Ordered ONE (20:27)
[2021-12-20 20:39] LABS: BASO % 0.5 % (0.0-1.0); EOS # 0.2 10^3/uL (0.0-0.5); EOS % 1.8 % (0.0-3.0); HEMATOCRIT 41.3 % (42.0-52.0); HEMOGLOBIN 13.9 g/dl (13.5-17.5); LYMPH % 23.6 % (24.0-44.0); MEAN CORPUSCULAR HEMOGLOBIN 33.1 pg (27.0-33.0); MEAN CORPUSCULAR HGB CONC 33.7 g/dl (32.0-36.5); MEAN CORPUSCULAR VOLUME 98.3 fl (80.0-96.0); MONO # 0.6 10^3/uL (0.0-0.8); MONO % 6.8 % (2.0-8.0); NEUTROPHILS # 5.6 10^3/uL (1.5-8.5); NEUTROPHILS % 66.9 % (36.0-66.0); PLATELET COUNT, AUTOMATED 219 10^3/uL (150-450); WHITE BLOOD COUNT 8.4 10^3/uL (4.0-10.0)
[2021-12-20 20:51] LABS: INR 1.21; PROTHROMBIN TIME 15.7 SECONDS (12.7-14.5)
[2021-12-20 21:10] LABS: CALCIUM LEVEL 8.9 MG/DL (8.8-10.2); CREATININE FOR GFR 1.36 MG/DL (0.70-1.30); POTASSIUM SERUM 3.6 MEQ/L (3.5-5.1)
[2021-12-20 21:11] LABS: CK-MB VALUE MASS 4.4 NG/ML (<3.6); MB/CK RELATIVE INDEX 3.67 (< OR =4)
[2021-12-20 21:13] LABS: RSV AMPLIFICATION NEGATIVE (NEGATIVE)
[2021-12-20] MEDS ORDERED: ALLO100T PO (23:40)
[2021-12-20 23:48] VITALS: BP 171/84
== END 2021-12-20 23:58 | disposition short-term general hospital (02) ==
LOC: M ED 19:16
DX: G45.9 Transient cerebral ischemic attack, unspecified (principal); R94.31 Abnormal electrocardiogram [ECG] [EKG]; I10 Essential (primary) hypertension; I48.91 Unspecified atrial fibrillation; F17.200 Nicotine dependence, unspecified, uncomplicated; Z79.01 Long term (current) use of anticoagulants; Z79.899 Other long term (current) drug therapy
CPT/HCPCS: 36415; 70450; 70496; 70498; 71045; 80047; 80048; 82550; 82553; 84484; 85025; 85610; 85730; 87631; 93005; 93041; 94760; 99285; Q9967

== ENCOUNTER → 2022-02-03 | Outpatient (REF) | payer MEDICARE, OTHER ==
[~2022-02-03] MED LIST changes: +ALLO100T PO
== END ==
LOC: M LAB REF 11:22
PROVIDERS: ATTEND Internal Medicine
DX: M10.072 Idiopathic gout, left ankle and foot (principal)

== ENCOUNTER → 2022-06-09 | Outpatient (REF) | payer MEDICARE, OTHER ==
[2022-06-09 14:14] LABS: TOTAL PROTEIN 6.8 GM/DL (6.4-8.2); URIC ACID 6.5 MG/DL (3.5-7.2)
[2022-06-09 21:17] LABS: IMMUNOGLOBULIN G 1300 MG/DL (681-1648); IMMUNOGLOBULIN M 84.3 MG/DL (40-230)
[2022-06-10 14:16] LABS: ALBUMIN 3.49 GM/DL (3.29-5.55); ALBUMIN % 51.3 % (55.8-66.1); ALPHA-1-GLOBULIN % 4.6 % (2.9-4.9); ALPHA-1-GLOBULINS 0.31 GM/DL (0.17-0.41); ALPHA-2-GLOBULINS 0.67 GM/DL (0.42-0.99); ALPHA-2-GLOBULINS % 9.9 % (7.1-11.8); BETA-1-GLOBULINS % 7.3 % (4.7-7.2); BETA-2-GLOBULINS 0.48 GM/DL (0.19-0.55); BETA-2-GLOBULINS % 7.1 % (3.2-6.5); GAMMA GLOBULIN % 19.8 % (11.1-18.8); GAMMA GLOBULINS 1.35 GM/DL (0.65-1.58)
== END ==
LOC: M LAB REF 12:24
PROVIDERS: ATTEND Internal Medicine
DX: M10.072 Idiopathic gout, left ankle and foot (principal); D47.2 Monoclonal gammopathy

== ENCOUNTER → 2022-12-13 | Outpatient (REF) | payer MEDICARE, OTHER | LOC: M LAB REF 12:20 | PROVIDERS: ATTEND Internal Medicine | DX: M10.072 Idiopathic gout, left ankle and foot (principal) ==

== ENCOUNTER → 2023-01-05 | Outpatient (REF) | payer MEDICARE, OTHER | LOC: M LAB REF 12:54 | PROVIDERS: ATTEND Internal Medicine | DX: R74.01 Elevation of levels of liver transaminase levels (principal) ==

== ENCOUNTER → 2023-01-26 | Outpatient (CLI) | payer MEDICARE, OTHER ==
[~2023-01-26] MED LIST changes: -COZA50TA; +LOSA-528
== END ==
LOC: M WHC 01-19 09:08
PROVIDERS: ATTEND Internal Medicine
DX: R74.8 Abnormal levels of other serum enzymes (principal)

== ENCOUNTER → 2023-05-29 | Outpatient (REF) | payer MEDICARE, OTHER ==
[2023-05-29 22:49] LABS: IMMUNOGLOBULIN M 96.8 MG/DL (50-300)
== END ==
LOC: M LAB REF 16:33
PROVIDERS: ATTEND Internal Medicine
DX: R74.01 Elevation of levels of liver transaminase levels (principal); D47.2 Monoclonal gammopathy

== ENCOUNTER → 2023-12-26 | Outpatient (REF) | payer MEDICARE, OTHER ==
[~2023-12-26] MED LIST changes: +CEFD1CAP9; +CEFD1CAP9 PO; -CEFD300C41; -CEFD300C41 PO
[2023-12-26 18:58] LABS: IMMUNOGLOBULIN A 430.6 MG/DL (40-350)
== END ==
LOC: M LAB REF 17:47
PROVIDERS: ATTEND Internal Medicine
DX: R74.01 Elevation of levels of liver transaminase levels (principal); D47.2 Monoclonal gammopathy

== ENCOUNTER → 2024-01-11 | Outpatient (REF) | payer MEDICARE, OTHER | LOC: M LAB REF 11:53 | PROVIDERS: ATTEND Internal Medicine | DX: I50.43 Acute on chronic combined systolic (congestive) and diastolic (congestive) heart failure (principal); I48.20 Chronic atrial fibrillation, unspecified ==

== ENCOUNTER → 2024-06-24 | Outpatient (REF) | payer MEDICARE, OTHER ==
[2024-06-24 14:21] LABS: IMMUNOGLOBULIN A 446.7 MG/DL (40-350); IMMUNOGLOBULIN G 1430 MG/DL (650-1600)
[2024-06-25 07:47] LABS: T P ELECTROPHORESIS SO 7.2 g/dL (6.1-8.1)
== END ==
LOC: M LAB REF 12:31
PROVIDERS: ATTEND Internal Medicine
DX: D47.2 Monoclonal gammopathy (principal)

== ENCOUNTER → 2024-12-27 | Outpatient (REF) | payer MEDICARE, OTHER | LOC: M LAB REF 12:07 | PROVIDERS: ATTEND Internal Medicine | DX: I48.21 Permanent atrial fibrillation (principal); I50.33 Acute on chronic diastolic (congestive) heart failure ==

== ENCOUNTER → 2025-01-01 | Outpatient (REF) | payer MEDICARE, OTHER ==
[2025-01-01 15:49] LABS: IMMUNOGLOBULIN A 428.5 MG/DL (40-350); IMMUNOGLOBULIN M 75.8 MG/DL (50-300)
[2025-01-02 07:58] LABS: PROTEIN, TOTAL SO 7.3 g/dL (6.1-8.1)
[2025-01-02 13:13] LABS: BETA 2 MICROGLOBULIN 4.33 mg/L (< OR = 2.51)
== END ==
LOC: M LAB REF 14:08
PROVIDERS: ATTEND Internal Medicine
DX: D47.2 Monoclonal gammopathy (principal)

== ENCOUNTER → 2025-01-21 | Outpatient (CLI) | payer MEDICARE, OTHER | LOC: M RAD 11:38 | PROVIDERS: ATTEND Internal Medicine Cardiovascular Disease | DX: I48.21 Permanent atrial fibrillation (principal); I42.0 Dilated cardiomyopathy; Z86.73 Personal history of transient ischemic attack (TIA), and cerebral infarction without residual deficits ==

== ENCOUNTER → 2025-07-02 | Outpatient (REF) | payer MEDICARE, OTHER ==
[~2025-07-02] MED LIST changes: -COLC0.6T47; -COLC0.6T47 PO; +COLC0.6T53; +COLC0.6T53 PO
[2025-07-02 13:26] LABS: IRON (FE) 98.0 UG/DL (65-175); PERCENT SATURATION 31.4 % (19.7-50.0)
[2025-07-03 09:42] LABS: PROTEIN, TOTAL SO 6.9 g/dL (6.1-8.1)
[2025-07-05 13:01] LABS: ALBUMIN SO 3.5 g/dL (3.8-4.8); ALPHA 1 GLOBULINS SO 0.3 g/dL (0.2-0.3); ALPHA 2 GLOBULINS SO 0.8 g/dL (0.5-0.9); BETA 2 GLOBULIN SO 0.6 g/dL (0.2-0.5); BETA GLOBULIN SO 0.5 g/dL (0.4-0.6); GAMMA GLOBULINS SO 1.3 g/dL (0.8-1.7); SPEP IFE ABN PROTEIN BAND 1 0.4 g/dL (NONE DETECTED)
== END ==
LOC: M LAB REF 12:04
PROVIDERS: ATTEND Internal Medicine
DX: D47.2 Monoclonal gammopathy (principal)